=== PATIENT | male | born 1995 | race Caucasian/White ===

== ENCOUNTER 2020-08-14 05:36 | Emergency (ER) | payer OTHER ==
[~2020-08-14] VITALS: Ht 177.8 cm; Wt 94.0 kg
[2020-08-14 06:25] LABS: BASO % 0.4 % (0.0-1.0); HEMATOCRIT 51.4 % (42.0-52.0); HEMOGLOBIN 17.9 g/dl (13.5-17.5); LYMPH % 13.9 % (24.0-44.0); MEAN CORPUSCULAR HEMOGLOBIN 33.1 pg (27.0-33.0); MEAN CORPUSCULAR HGB CONC 34.8 g/dl (32.0-36.5); MONO # 0.4 10^3/uL (0.0-0.8); MONO % 5.1 % (0.0-5.0); NEUTROPHILS % 80.2 % (36.0-66.0); PLATELET COUNT, AUTOMATED 267 10^3/uL (150-450); RED BLOOD COUNT 5.41 10^6/uL (4.30-6.10); WHITE BLOOD COUNT 7.4 10^3/uL (4.0-10.0)
[2020-08-14 06:38] LABS: INR 0.95; PROTHROMBIN TIME 12.9 SECONDS (12.5-14.3)
[2020-08-14 06:39] LABS: PARTIAL THROMBOPLASTIN TIME 24.3 SECONDS (24.2-38.5)
[2020-08-14 06:42] LABS: ALBUMIN 4.7 GM/DL (3.2-5.2); ALT/SGPT 42 U/L (12-78); BILIRUBIN,DIRECT 0.2 MG/DL (0.0-0.2); BILIRUBIN,TOTAL 1.2 MG/DL (0.2-1.0); BLOOD UREA NITROGEN 14 MG/DL (7-18); CALCIUM LEVEL 9.2 MG/DL (8.5-10.1); CARBON DIOXIDE LEVEL 29 MEQ/L (21-32); CHLORIDE LEVEL 105 MEQ/L (98-107); CREATININE FOR GFR 1.08 MG/DL (0.70-1.30); GLOMERULAR FILTRATION RATE > 60.0 (>60); GLUCOSE, FASTING 122 MG/DL (70-100); POTASSIUM SERUM 4.4 MEQ/L (3.5-5.1); SODIUM LEVEL 138 MEQ/L (136-145)
[2020-08-14 06:43] LABS: LIPASE 78 U/L (73-393)
[2020-08-14] MEDS: GASTROGRAFIN SOLUTION 30ML PO SCH ×2 (06:54→07:23)
[2020-08-14 06:56] LABS: ERYTHROCYTE SEDIMENTATION RATE 1 mm/hr (0-15)
[2020-08-14] MEDS ORDERED: ISOVUE-370 76% 100ML VIAL As Ordered ONE (08:15)
--- NOTE | 2020-08-14 08:54 | REPVR ---
PROCEDURE INFORMATION: Exam: CT Abdomen And Pelvis With Contrast Exam date and time: 08/14/2020 6:18 AM Age: 25 years old Clinical indication: Other: Bloody diarrhea; Abdominal pain; Additional info: Bloody diarrhea, lower abd pain, R/O diverticulitis vs ibd TECHNIQUE: Imaging protocol: Computed tomography of the abdomen and pelvis with intravenous contrast. Radiation optimization: All CT scans at this facility use at least one of these dose optimization techniques: automated exposure control; mA and/or kV adjustment per patient size (includes targeted exams where dose is matched to clinical indication); or iterative reconstruction. Contrast material: ISOVUE 370; Contrast volume: 100 ml; Contrast route: INTRAVENOUS (IV); COMPARISON: No relevant prior studies available. FINDINGS: Liver: Normal. No mass. Gallbladder and bile ducts: Normal. No calcified stones. No ductal dilation. Pancreas: Normal. No ductal dilation. Spleen: Normal. No splenomegaly. Adrenals: Right adrenal gland calcifications without specific mass identified. Kidneys and ureters: Normal. No hydronephrosis. Stomach and bowel: Mild transverse, descending and rectosigmoid colonic wall thickening and pericolonic edema. Appendix: The vermiform appendix is normal. Intraperitoneal space: Unremarkable. No free air. No significant fluid collection. Vasculature: Unremarkable. No abdominal aortic aneurysm. Lymph nodes: No enlarged lymph nodes. Urinary bladder: Unremarkable as visualized. Reproductive: Unremarkable as visualized. Bones/joints: Unremarkable. No acute fracture. Soft tissues: Unremarkable. IMPRESSION: 1. Mild transverse, descending and rectosigmoid colonic wall thickening and pericolonic edema. The finding is consistent with mild nonspecific colitis. Clinical correlation with the patient's specific symptomatology is recommended. 2. Right adrenal calcifications which may represent the sequela of prior hemorrhage/infection. Electronically signed by: Bhavin Ye On 08/14/2020 08:54:06 AM
[2020-08-14 09:26] VITALS: BP 142/91
[2020-08-14] MEDS ORDERED: ACETAMINOPHEN 500 MG TAB PO ONE (09:30)
== END 2020-08-14 09:32 | disposition home or self-care (01) ==
LOC: M ED 05:36
DX: K52.9 Noninfective gastroenteritis and colitis, unspecified (principal); K92.1 Melena; E80.6 Other disorders of bilirubin metabolism; N20.0 Calculus of kidney; I51.9 Heart disease, unspecified
CPT/HCPCS: 36415; 74177; 80048; 80076; 81001; 83690; 85025; 85610; 85652; 85730; 86140; 87507; 99284; Q9963; Q9967